=== PATIENT | female | born 1985 | race Caucasian/White ===

== ENCOUNTER 2016-10-24 11:13 | Inpatient (IN) | payer OTHER ==
[2016-10-24] MEDS ORDERED: CITRIC ACID/SODIUM CITRATE 30 ML UDCUP PO ONE (11:51)
[2016-10-24] MEDS ORDERED: LR 500 ML IV ONE (11:51)
[2016-10-24] MEDS ORDERED: ceFAZolin 2 GM/DEXTROSE 100 ML IV ONE (11:51)
[2016-10-24] MEDS ORDERED: LR 1,000 ML IV SCH (12:00)
[2016-10-24] MEDS ORDERED: LIDOCAINE 1% 30 ML SDV ONE (12:27)
[2016-10-24] MEDS ORDERED: MISOPROSTOL 200 MCG TAB ONE (12:28)
[2016-10-24] MEDS ORDERED: AMMONIA AROMATIC 1 EACH AMP IH ONE (12:28)
[2016-10-24 12:51] LABS: % IMMATURE GRANULYOCYTES 0.5 % (0.0-1.1); ABSOLUTE IMMATURE GRANULOCYTES 0.07 10^3/uL (0.00-0.10); ADD DIFF? NO; ADD MORPH? NO; ADD SCAN? NO; ATYPICAL LYMPHOCYTE FLAG 0 (0-99); FRAGMENT RBC FLAG 0 (0-99); HEMOGLOBIN 13.3 g/dL (12.6-16.3); LEFT SHIFT FLG 10 (0-99); LIPEMIA HEMOLYSIS FLAG 90 (0-99); MEAN CELL HEMOGLOBIN 33.1 pg (27.9-34.1); MEAN CELL VOLUME 94.5 fL (81.5-99.8); MEAN PLATELET VOLUME 11.2 fL (8.7-11.7); PLATELET CLUMPS FLAG 0 (0-99); PLATELET COUNT 143 10^3/uL (150-400); RED BLOOD CELL COUNT 4.02 10^6/uL (4.18-5.33); RED CELL DISTRIBUTION WIDTH 13.1 % (11.5-15.2)
[2016-10-24] MEDS ORDERED: AMPICILLIN SODIUM 2 GM in NS 100 ML IV ONE (13:30)
[2016-10-24] MEDS ORDERED: morphINE PF 5 MG/10 ML INJ ONE (14:04)
[2016-10-24] MEDS ORDERED: fentaNYL 100 MCG/2 ML INJ ONE (14:04)
[2016-10-24] MEDS ORDERED: DEXAMETHASONE 4 MG/ML VIAL ONE ×2 (14:36)
[2016-10-24] MEDS ORDERED: OXYTOCIN 100 UNITS/10 ML VIAL ONE (14:42)
[2016-10-24] MEDS ORDERED: ONDANSETRON 4 MG/2 ML VIAL ONE ×2 (14:42)
[2016-10-24] MEDS ORDERED: PHENYLEPHRINE HCL 100 MCG/ML SYR ONE (15:03)
[2016-10-24] MEDS ORDERED: ACETAMINOPHEN 325 MG TAB PO PRN (15:16)
[2016-10-24] MEDS ORDERED: SIMETHICONE 80 MG TAB CHEW PO PRN (15:16)
[2016-10-24] MEDS ORDERED: DOCUSATE SODIUM 100 MG CAP PO PRN (15:16)
--- NOTE | 2016-10-24 15:19 | OBPROC ---
- Delivery Pre-op Diagnoses: 1) IUP at 38+4 wks, 2) Breech presentation, 3) PROM Post-op Diagnoses: byron Procedure: Primary, Low Transverse Surgeon: Bobbi Lilly Hot Baller: Kadie Crowell Anesthesiologist: Get Gill Anesthesia: Spinal Complications: None Findings: Normal IV Fluid (ml): 2,400 EBL: 800 cc Drains: Other (Specify) (real) - Info A Delivery Date: 10/24/16 Delivery Time: 14:47 Sex of Infant: Female Weight (gm): 3260 g Score (1 Min): 8 Score (5 Min): 9
[2016-10-24] MEDS ORDERED: PHENYLEPHRINE HCL 100 MCG/ML SYR IVP PRN (16:04)
[2016-10-24] MEDS ORDERED: ONDANSETRON 4 MG/2 ML VIAL IVP PRN (16:20)
[2016-10-24] MEDS ORDERED: NALOXONE HCL 0.4 MG/ML INJ IVP PRN (16:20)
--- NOTE | 2016-10-24 16:38 | PREANESOB ---
Obstetric Pre-Anesthesia Info - General Info Proposed Procedure: C Section for breech. : 1 Para: 0 WBD: 38 - Info Status: Full Term Monitors: External FHR Baseline (bpm): 130 FHR Pattern: Reassuring - Labor Status Indications for Current Section: Breech Labor Epidural: No Anesthesia ROS: Negative. Allergies/Adverse Reactions: Allergy/AdvReac Type Severity Reaction Status Date / Time No Known Allergies Allergy Unverified 10/24/16 11:51 Home Medications: Medication Instructions Recorded Docosahexanoic Acid [Dha] 100 mg PO 10/24/16 IRON,CARBONYL [IRON] 45 mg PO 10/24/16 1 PO DAILY 10/24/16 Visit Medications: Generic Name Dose Route Start Last Admin Trade Name Freq PRN Reason Stop Dose Admin Acetaminophen 325 - 650 mg 10/24/16 15:16 Tylenol PO 04/22/17 15:15 Q4HRS PRN Pain, Mild Hydrocodone Bitart/Acetaminophen 1 - 2 tab 10/24/16 15:16 [place] 5/325 PO 11/03/16 15:15 Q4HRS PRN Pain, Moderate Docusate Sodium 100 mg 10/24/16 15:16 Colace PO 04/22/17 15:15 BID PRN Constipation Lactated Ringer's 1,000 mls @ 125 mls/hr 10/24/16 12:00 10/24/16 13:00 Lr IV 04/22/17 11:59 1,000 mls CONT ALEXEI Administration Ibuprofen 600 mg 10/25/16 18:00 Motrin PO 04/23/17 17:59 Q6HRS PRN Inflammation Ketorolac Tromethamine 30 mg 10/24/16 18:00 Toradol IVP 10/25/16 12:01 Q6HRS ALEXEI Simethicone 80 mg 10/24/16 15:16 Mylicon PO 04/22/17 15:15 .TIDMEALS AND HS PRN Gas Discontinued Medications Generic Name Dose Route Start Last Admin Trade Name Freq PRN Reason Stop Dose Admin Ammonia (Aromatic Spirit) Confirm 10/24/16 12:28 Ammonia Aromatic Administered 10/24/16 12:29 Dose 1 each IH .STK-MED ONE Citric Acid/Sodium Citrate 30 ml 10/24/16 11:51 Bicitra PO 10/24/16 11:52 ONCALL ONE Dexamethasone Confirm 10/24/16 14:36 Decadron Injection Administered 10/24/16 14:37 Dose 4 mg .ROUTE .STK-MED ONE Dexamethasone Confirm 10/24/16 14:36 Decadron Injection Administered 10/24/16 14:37 Dose 4 mg .ROUTE .STK-MED ONE Fentanyl Confirm 10/24/16 14:04 Sublimaze Administered 10/24/16 14:05 Dose 100 mcg .ROUTE .STK-MED ONE Cefazolin Sodium/Dextrose 100 mls @ 200 mls/hr 10/24/16 11:51 10/24/16 13:49 Ancef 2 Gm (Premix) IV 10/24/16 12:20 100 mls ONCALL ONE Administration Protocol Lactated Ringer's 500 mls @ 0 mls/hr 10/24/16 11:51 Lr IV 10/24/16 11:52 ONCE ONE As Directed Ampicillin Sodium 2 gm/ Sodium 110 mls @ 220 mls/hr 10/24/16 13:30 10/24/16 13:30 Chloride IV 10/24/16 13:59 110 mls ONCE ONE Administration Lidocaine HCl Confirm 10/24/16 12:27 Lidocaine Hcl 1% Administered 10/24/16 12:28 Dose 30 ml .ROUTE .STK-MED ONE Misoprostol Confirm 10/24/16 12:28 Cytotec Administered 10/24/16 12:29 Dose 800 mcg .ROUTE .STK-MED ONE Morphine Sulfate Confirm 10/24/16 14:04 Morphine Pf 5 Mg/10 Ml Administered 10/24/16 14:05 Dose 5 mg .ROUTE .STK-MED ONE Ondansetron HCl Confirm 10/24/16 14:42 Zofran Administered 10/24/16 14:43 Dose 4 mg .ROUTE .STK-MED ONE Ondansetron HCl Confirm 10/24/16 14:42 Zofran Administered 10/24/16 14:43 Dose 4 mg .ROUTE .STK-MED ONE Oxytocin Confirm 10/24/16 14:42 Pitocin Administered 10/24/16 14:43 Dose 100 units .ROUTE .STK-MED ONE Phenylephrine HCl Confirm 10/24/16 15:03 Karl-Synephrine Administered 10/24/16 15:04 Dose 1,000 mcg .ROUTE .STK-MED ONE - Anesthesia History Response to Local Anesthetics: Normal Anesthesia & Operative History: No Prior Problems Family Anesthesia History: Negative - Social History Substance Use/Abuse: Denies - Focused Exam Blood Pressure: 117/84 Heart Rate: 82 Respiratory Rate: 18 Height/Weight (Nursing): Height 172.72 cm Weight 72.121 kg Physical Exam: Within normal limits. ASA Status: II Labs: 10/24/16 12:30 Patient ABO/Rh A POSITIVE 10/24/16 12:30 - Plan Consent Signed and on Chart: Yes Patient/Guardian Understands and Agrees to Plan: Yes
--- NOTE | 2016-10-24 16:59 | POSTANESTH ---
Post Anesthetic Evaluation Cardiovascular Status: Normal, Stable Respiratory Status: Normal, Stable, Similar to Pre-op Cond. Level of Consciousness/Mental Status: Can Participate in Eval, Alert and Oriented (Tolerated spinal well, BP treated, comfortable for surgery, to PACU, no nausea or pain.) Pain Control: Adequate, Prn Tx Ordered Nausea/Vomiting Control: Adequate, Prn Tx Ordered Complications Possibly Related to Anesthesia: None Noted
[2016-10-24 17:55] VITALS: RESP 16
[2016-10-24] MEDS: KETOROLAC 30 MG/1 ML SDV IVP SCH (20:16)
[2016-10-25] MEDS: KETOROLAC 30 MG/1 ML SDV IVP SCH ×3 (02:15→14:54)
[2016-10-25] MEDS ORDERED: KETOROLAC 30 MG/1 ML SDV IVP ONE (15:00)
--- NOTE | 2016-10-25 17:16 | OBPROG ---
OBG Progress Note Assessment/Plan: Late entry: Pt seen at 0715 and again at 1715 today. Assessment: 31 y/o POD#1 s/p primary LTCS for breech/PROM at term - hemodynamically stable Plan: 1) Continue routine PP care 2) A+/RI 3) Possible discharge tomorrow if all criteria met and pain well controlled. 10/25/16 17:15 Subjective: Pt feeling well, pain starting to increase a little as the duramorph wears off. She has voided, pain controlled, lochia diminishing. Baby just transferred to [facility] for malposition of the intestines. Objective: 10/25/16 00:00 Patient ABO/Rh A POSITIVE 10/24/16 12:30 Temp Pulse Resp BP Pulse Ox 36.8 C 67 16 101/67 98 10/25/16 15:51 10/25/16 15:51 10/25/16 15:51 10/25/16 15:51 10/25/16 15:51 Uterine Position/Fundal Height: Umbilicus -1 Uterine Tone: Firm - Physical Exam General Appearance: WD/WN, alert, no apparent distress Respiratory: lungs clear Cardiac/Chest: regular rate, rhythm Abdomen: normal bowel sounds, soft, incision (c/d/i, steri strips intact.) ICD10 Worksheet Patient Problems: Problems Problem Status Onset delivery delivered Acute - ICD10 Problem Qualifiers (1) delivery delivered
[2016-10-25] MEDS: HYDROCODONE/APAP 5/325 TAB PO PRN ×2 (17:17→21:10)
[2016-10-25 20:25] VITALS: O2SAT 96
[2016-10-25] MEDS: IBUPROFEN 600 MG TAB PO PRN (21:11)
[2016-10-26] MEDS: IBUPROFEN 600 MG TAB PO PRN ×2 (03:11→09:35)
[2016-10-26] MEDS: HYDROCODONE/APAP 5/325 TAB PO PRN ×3 (03:12→13:44)
--- NOTE | 2016-10-26 08:16 | OBGCSDC ---
General Delivery Information - General Info : 1 Para: 1 Delivery Date: 10/24/16 Delivery Time: 14:47 Delivery Physician/CNM: Bobbi Lilly Library Director: Kadie Crowell Admission Date: 10/24/16 Labs: Patient ABO/Rh A POSITIVE 10/24/16 12:30 Hct 35.9 % (38.0-47.0) L 10/25/16 00:00 - Info Infant A Weight (gm): 3260 g Sex of : Female Score (1 Min): 8 Score (5 Min): 9 - Delivery IUP (Weeks): 38 weeks Number of Prior Sections: 0 Indications for Current Section: Breech Procedures: LTCS Intra-op Complications: None EBL: 800 cc Anesthesia: Spinal Discharge Information - Discharge Information Discharge Medications: Ibuprofen, Vitamins, Vicodin Condition: Good Instruction/Follow Up: Two Weeks, Six Weeks Discharge Physician/CNM: Kandi Adan Discharge Date: 10/26/16 Dictated: No
[2016-10-26 09:01] VITALS: BP 89/55; PULSE 62; TEMP 97.8
--- NOTE | 2016-10-27 22:28 | GOP ---
[f rep st] OPERATIVE REPORT DATE OF OPERATION: 10/24/2016 SURGEON: Bobbi Lilly MD ENVIRONMENTAL CONFLICT MANAGER: Isabel Arevalo MD. ANESTHESIA: Spinal. PREOPERATIVE DIAGNOSIS: 1. Intrauterine at 38 weeks and 4 days. 2. Premature rupture of membranes at term. 3. Breech presentation. POSTOPERATIVE DIAGNOSIS: 1. Intrauterine at 38 weeks and 4 days. 2. Premature rupture of membranes at term. 3. Breech presentation. PROCEDURE PERFORMED: Primary low transverse section. FINDINGS: 1. Delivered a female , weighing 3260 g with Apgars of 8 and 9 at 1447. 2. Normal uterus, fallopian tubes, and ovaries. 1. Triple nuchal cord was noted. 3. SPECIMENS: None. ESTIMATED BLOOD LOSS: 800 cc. INDICATIONS: The patient presented at term with premature rupture of membranes confirmed on exam wi th clear fluid noted. The baby was noted to be in a breech presentation, and she desired and agreed to proceed with a section. DESCRIPTION OF PROCEDURE: The patient was taken to the operating room where spinal anesthesia was f ound to be adequate. Patient was prepared and draped in normal sterile fashion in dorsal supine pos ition with a left tilt. After confirmation of adequate anesthesia and administration of preoperativ e antibiotics, a low transverse skin incision was made and carried down to the level of the fascia u sing the scalpel and Bovie for hemostasis. The fascia was incised in the midline and extended later ally bilaterally with Ba scissors. The fascia was dissected off the rectus muscles superiorly and inferiorly using the Bovie. The peritoneal cavity was entered bluntly, and the incision was extend ed and stretched open. The bladder blade was placed. An incision was made in the vesicouterine per itoneum which was then extended laterally bilaterally with the Metzenbaum scissors. The bladder was dissected away from the lower uterine segment with digital dissection. A low transverse uterine in cision was made and entry into the uterine cavity was made with clear fluid noted. The incision was extended laterally. The baby was delivered buttocks first and the legs were delivered sequentially by flexing at the knees. Baby's body was wrapped with a moist towel and elevated and the arms and head were delivered easily with fundal pressure. The baby was bulb suctioned, and of note, during d elivery, a triple nuchal cord was noted which had to be reduced before delivery of the head. The cord was doubly clamped and cut, and the baby was bulb suctioned with a spontaneous cry noted. The baby was handed to the waiting nurse practitioner. Cord blood was obtained. The place viviane was then delivered with uterine massage. The uterus was exteriorized on the maternal abdomen an d wiped with a dry lap sponge to remove all residual membranes. The uterine incision was closed wit h a running lock stitch of 0 Monocryl. A second imbricating layer was placed using the same suture. The uterine tone was noted to be excellent. The posterior cul-de-sac was irrigated and noted to b e clear. The uterine incision was reexamined and noted to be hemostatic. The uterus was placed jasiel k in the maternal abdomen, and the gutters were wiped with moist lap sponges bilaterally. The uteri ne incision was reexamined and noted to be hemostatic. The rectus muscles were then reapproximated with a [id number] stitch of 0 chromic. The rectus muscle surfaces and fascial surfaces were ex amined closely, and hemostasis was obtained with the use of the Bovie. The fascia was then closed w ith a running nonlocked stitch of #1 PDS. The subcutaneous tissue was irrigated with copious amount s of normal saline, and hemostasis was obtained using the Bovie. The subcutaneous tissue was reappr oximated with interrupted stitches of 2-0 Vicryl. The skin was closed with a subcuticular stitch of 4-0 Monocryl. Steri-Strips and a bandage dressing was placed. A vaginal Crede exam was performed with a small amount of blood noted. All sponge, lap, and needle counts were correct x2. The patient was transferred to the PACU in stable and good condition. COMPLICATIONS: None. DRAINS: Carter to gravity. IV FLUIDS: 2400 cc. URINE OUTPUT: 100 cc. /[id number]/MODL
== END 2016-10-26 14:00 | disposition home or self-care (01) | DRG 766 ==
LOC: FLD 11:13 → FOB 16:55
PROVIDERS: ADMIT Obstetrics & Gynecology; ATTEND Obstetrics & Gynecology
PROC: 10D00Z1 Extraction of Products of Conception, Low, Open Approach (ICD-10-PCS; principal; 2016-10-24)
DX: O32.1XX0 Maternal care for breech presentation, not applicable or unspecified (principal); O42.92 Full-term premature rupture of membranes, unspecified as to length of time between rupture and onset of labor; Z3A.38 38 weeks gestation of pregnancy; Z37.0 Single live birth
CPT/HCPCS: J0290; J0690; J1100; J1885; J2274; J2370; J2405; J2590; J3010

== ENCOUNTER → 2016-11-03 | Outpatient (CLI) | payer OTHER | LOC: FLACT 09:57 | PROVIDERS: ATTEND Obstetrics & Gynecology | DX: Z39.1 Encounter for care and examination of lactating mother (principal) | CPT/HCPCS: G0463 ==